=== PATIENT | female | born 1975 | race Caucasian/White ===

== ENCOUNTER 2018-11-13 21:36 | Emergency (ER) | payer OTHER ==
[2018-11-13] MEDS ORDERED: LET GEL TOPICAL 1 EA SYR TP ONE (22:00)
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
[2018-11-13 22:59] VITALS: BP 128/74
== END 2018-11-13 22:59 | disposition home or self-care (01) ==
PROC: 0UQMXZZ Repair Vulva, External Approach (ICD-10-PCS; principal; 2018-11-13)
DX: S31.41XA Laceration without foreign body of vagina and vulva, initial encounter (principal); W26.8XXA Contact with other sharp object(s), not elsewhere classified, initial encounter; Y93.A1 Activity, exercise machines primarily for cardiorespiratory conditioning; Y92.39 Other specified sports and athletic area as the place of occurrence of the external cause; Y99.9 Unspecified external cause status